=== PATIENT | female | born 1965 | race Caucasian/White ===

== ENCOUNTER 2016-10-09 06:38 | Emergency (ER) | payer OTHER ==
[~2016-10-09] VITALS: Ht 154.9 cm; Wt 72.6 kg
[~2016-10-09 06:38] MED LIST: HYDR-971 PO; OMEP40CA2 PO; PHEN37.5 PO; ZOLP5TAB PO
[2016-10-09 07:04] VITALS: BP 142/65
[2016-10-09] MEDS ORDERED: TRAM50TA PO (07:12)
--- NOTE | 2016-10-09 07:12 | PHYS DOC ---
Past Medical History Past Medical History: Diabetes-Type II, High Cholesterol, Hypertension, Kidney Stone Past Surgical History: Cholecystectomy, , Hysterectomy, Other Additional Past Surgical Histo: gastric sleeve, lap band Alcohol Use: None Drug Use: None Adult General Chief Complaint Chief Complaint: FACE PROBLEM HPI HPI Patient is a 51 year old female who presents with left sided jaw pain. patient reports 2-3 day history of jaw pain worse with opening her mouth, associated with clicking sound. She has pain with eating. Denies fevers or chills, dental pain, jaw or oral swelling, ear pain, radiating pain from the chest, upper extremity, or neck. Denies previous history of similar symptoms. Has had mild relief with application of a heating pad. Otherwise has tried no interventions at home. Has an appointment with her dentist this afternoon but is afraid she won't be able to go because she can barely open her mouth. Denies any other past medical history although chart indicates history of diabetes and hypertension. Review of Systems Review of Systems Constitutional: Denies fever or chills HENT: Denies nasal congestion or sore throat, reports dropping Respiratory: Denies cough or shortness of breath Cardiovascular: Denies chest pain GI: Denies abdominal pain, nausea, vomiting Musculoskeletal: Denies back pain or joint pain Integument: Denies rash s Neurologic: Denies headache, focal weakness or sensory changes Allergies Allergies Allergies Coded Allergies Type Severity Reaction Last Updated Verified ceftriaxone Allergy Intermediate Swelling 06/21/15 Yes codeine Adverse Reaction Intermediate nausea 06/21/15 Yes Physical Exam Physical Exam Constitutional: Well developed, well nourished, no acute distress, non-toxic appearance. HENT: Normocephalic, atraumatic, bilateral external ears normal, left TM no erythema or bulging, normal EAC, oropharynx moist, nose normal. tender with palpation over the left TMJ, limited mouth opening, no jaw swelling, scattered dental caries without abscess, airway patent. Eyes: PERRLA, EOMI Neck: supple, no stridor. Cardiovascular: RRR, no murmurs, no edema. Lungs & Thorax: LCTAB, no wheezing, no respiratory distress. Abdomen: nondistended. Skin: Warm, dry, no erythema, no rash. Extremities: No deformity Neurologic: Alert and oriented X 3 Current Patient Data Vital Signs Vital Signs Date Time Temp Pulse Resp B/P Pulse Ox O2 Delivery O2 Flow Rate FiO2 10/09/16 07:04 97.9 63 20 98 Room Air 97.9 EKG EKG [] Radiology/Procedures Radiology/Procedures [] Course & Med Decision Making Course & Med Decision Making Pertinent Labs and Imaging studies reviewed. (See chart for details) Patient presents with TMJ pain consistent with TMJ disorder. No symptoms or exam findings to suggest more serious pathology at this time; appears musculoskeletal in nature. Recommend soft diet, ice/heat, ibuprofen if able otherwise tylenol, gave prescription for tramadol. Recommend keeping appointment with dentist today. Come back for chest pain, fevers, difficulty breathing or swallowing, any otherwise worsening condition. Discharged home in stable condition. [] Dragon Disclaimer Dragon Disclaimer This electronic medical record was generated, in whole or in part, using a voice recognition dictation system. Departure Departure Impression: Primary Impression: TMJ (temporomandibular joint disorder) Disposition: 01 HOME, SELF-CARE Condition: STABLE Referrals: BON BLACKMON MD (PCP) Patient Instructions: Temporomandibular Joint Pain-Brief Additional Instructions: You were seen in the emergency department today for jaw pain. This appears to be dysfunction of temporomandibular joint. Please rest, apply ice or heat, take tylenol or ibuprofen as needed for pain, use tramadol for breakthrough pain. Follow up with your dentist today as scheduled. Come back for severe chest pain, high fever, difficulty breathing or swallowing, any otherwise worsening condition. Scripts Tramadol Hcl 50 Mg Tablet1 Tab PO PRN Q6HRS PRN PAIN #15 TAB Prov:LYNDSEY SPIVEY MD 10/09/16 LYNDSEY SPIVEY MD Oct 09, 2016 07:12
== END 2016-10-09 07:20 | disposition home or self-care (01) ==
LOC: ER 06:38
DX: M26.601 Right temporomandibular joint disorder, unspecified (principal); E78.00 Pure hypercholesterolemia, unspecified; E11.9 Type 2 diabetes mellitus without complications; I10 Essential (primary) hypertension; Z88.1 Allergy status to other antibiotic agents; Z88.5 Allergy status to narcotic agent
CPT/HCPCS: 99283

== ENCOUNTER → 2017-11-15 | Outpatient (CLI) | payer OTHER | END | disposition home or self-care (01) | LOC: MAMMO 07:56 | DX: Z12.31 Encounter for screening mammogram for malignant neoplasm of breast (principal); I10 Essential (primary) hypertension; E11.9 Type 2 diabetes mellitus without complications; E78.00 Pure hypercholesterolemia, unspecified | CPT/HCPCS: 77063; 77067 ==

== ENCOUNTER → 2018-03-07 | Day surgery (SDC) | payer OTHER ==
[~2018-03-07] MED LIST changes: +IV RINGERS,LACTATED 1000ML 1,000 ML IV SCH; +LIDOCAINE 1% PF 2 ML VIAL. ID PRN; +LIDOCAINE 2% PF Vial for OR 5 ML VIAL. ONE; +MIDAZOLAM HCL/PF 2 MG/2 ML VIAL. IV PRN; +ONDANSETRON PF 4 MG/2 ML VIAL. IV PRN; +PROCHLORPERAZINE 10 MG/2 ML VIAL. IV PRN; +PROPOFOL 20 ML IV ONE; +TRAM50TA PO; +fentaNYL PF VIAL 100 MCG/2 ML VIAL IV PRN
[2018-03-07 11:50] VITALS: BP 144/66
--- NOTE | 2018-03-07 23:57 | HP ---
ADMIT DATE: 03/07/2018 REFERRING PHYSICIAN: Hannah Roach. REASON: Dysphagia and epigastric pain. HISTORY OF PRESENT ILLNESS: A 53-year-old female with a past medical history significant for , cholecystectomy, hysterectomy, tonsillectomy and gastric bypass surgery was seen with persistent epigastric pain associated with difficulties with swallowing. She has a sensation of Globus in the upper pharynx. There has been no change in weight and no bleeding. Did have an episode of pain, which lasted for several hours, which did awaken her from her sleep similar to her previous gallbladder attack prior to cholecystectomy for symptomatic cholelithiasis. With continued symptoms, she is here today. PAST MEDICAL HISTORY: Status post , cholecystectomy, hysterectomy, tonsillectomy, weight reduction and gastroesophageal reflux disease. ALLERGIES: CEFTRIAXONE AND CODEINE. MEDICATIONS: Include [place], omeprazole, phentermine, tramadol and zolpidem. FAMILY AND SOCIAL HISTORY: Colon cancer in the father in 50s. She does not drink or smoke. Family history is otherwise noncontributory. REVIEW OF SYSTEMS: Per records. PHYSICAL EXAMINATION: GENERAL: Reveals a well-nourished, well-developed female. VITAL SIGNS: Temperature is 98.1, pulse 97 and respirations 20. HEENT: Reveals normocephalic and atraumatic head. Pupils and extraocular muscles are not tested. Sclerae anicteric. NECK: Supple. LUNGS: Clear. CARDIOVASCULAR: Reveals S1, S2 without S3, S4 or appreciable murmur. ABDOMEN: Reveals soft abdomen with epigastric tenderness to deep palpation. No appreciable hepatosplenomegaly with multiple surgical incisions. EXTREMITIES: Reveals no cyanosis, clubbing or edema. IMPRESSION: Epigastric pain, dysphagia, status post cholecystectomy, etiology is to be determined. Differential includes Schatzki's ring, achalasia, malignancy, Adams's, eosinophilic esophagitis, peptic ulcer disease, retained common duct stone. Therefore, recommend upper endoscopy with possible biopsy and dilatation. Risks and benefits have been discussed with the patient and is willing to proceed at this time. DALIA RUBIO MD DR: LUISANA/alessandro JOB#: [id number] / [id number]
== END | disposition home or self-care (01) ==
LOC: SURG 10:09
PROVIDERS: ATTEND Internal Medicine Gastroenterology
DX: K22.2 Esophageal obstruction (principal); I10 Essential (primary) hypertension; K21.9 Gastro-esophageal reflux disease without esophagitis; Z90.49 Acquired absence of other specified parts of digestive tract; Z98.890 Other specified postprocedural states; Z90.710 Acquired absence of both cervix and uterus; Z98.84 Bariatric surgery status; Z88.5 Allergy status to narcotic agent; Z88.8 Allergy status to other drugs, medicaments and biological substances; Z79.899 Other long term (current) drug therapy; Z80.0 Family history of malignant neoplasm of digestive organs
CPT/HCPCS: 43235; 43450; J2001; J2704

== ENCOUNTER → 2018-03-19 | Outpatient (CLI) | payer OTHER ==
[2018-03-07 11:50] VITALS: BP 144/66
[~2018-03-19] MED LIST changes: -IV RINGERS,LACTATED 1000ML 1,000 ML IV SCH; -LIDOCAINE 1% PF 2 ML VIAL. ID PRN; -LIDOCAINE 2% PF Vial for OR 5 ML VIAL. ONE; -MIDAZOLAM HCL/PF 2 MG/2 ML VIAL. IV PRN; -ONDANSETRON PF 4 MG/2 ML VIAL. IV PRN; -PROCHLORPERAZINE 10 MG/2 ML VIAL. IV PRN; -PROPOFOL 20 ML IV ONE; -fentaNYL PF VIAL 100 MCG/2 ML VIAL IV PRN
--- NOTE | 2018-03-19 16:37 | RAD ---
Right upper quadrant abdominal ultrasound, 03/19/2018: HISTORY: Abdominal pain after cholecystectomy The gallbladder is surgically absent. The common hepatic duct is of normal caliber measuring 4 mm. The liver demonstrates increased echogenicity in a diffuse pattern most commonly due to fatty change. No hepatic mass is evident. The visualized portions of the right kidney are unremarkable. The pancreas was obscured by overlying bowel. IMPRESSION: 1. Status post cholecystectomy. 2. Increased hepatic echogenicity suggesting fatty change Electronically signed by: Miki Patel MD (03/19/2018 4:34 PM) [facility]
== END | disposition home or self-care (01) ==
LOC: US 07:16
PROVIDERS: ATTEND Internal Medicine Gastroenterology
DX: R10.84 Generalized abdominal pain (principal); K21.9 Gastro-esophageal reflux disease without esophagitis; I10 Essential (primary) hypertension; E11.9 Type 2 diabetes mellitus without complications; E78.00 Pure hypercholesterolemia, unspecified; Z87.442 Personal history of urinary calculi; Z86.010 Personal history of colon polyps; Z90.710 Acquired absence of both cervix and uterus; Z90.49 Acquired absence of other specified parts of digestive tract; Z98.890 Other specified postprocedural states; Z88.1 Allergy status to other antibiotic agents; Z88.8 Allergy status to other drugs, medicaments and biological substances; Z88.5 Allergy status to narcotic agent; Z80.0 Family history of malignant neoplasm of digestive organs; Z82.49 Family history of ischemic heart disease and other diseases of the circulatory system
CPT/HCPCS: 76705

== ENCOUNTER → 2018-03-26 | Outpatient (CLI) | payer OTHER ==
[2018-03-07 11:50] VITALS: BP 144/66
[~2018-03-26] MED LIST changes: +CONTRAST GIVEN. MC PRN; +IOHEXOL 300 MG/ML 100ML VIAL. IV ONE
[2018-03-26 08:27] LABS: CREATININE 0.9 mg/dL (0.6-1.0); GFR 65.8
--- NOTE | 2018-03-26 09:46 | RAD ---
PQRS Compliance Statement: One or more of the following individualized dose reduction techniques were utilized for this examination: 1. Automated exposure control 2. Adjustment of the mA and/or kV according to patient size 3. Use of iterative reconstruction technique Neck CT with contrast: 03/26/2018 Indication: Dysphagia. Technique: Multiple axial images were obtained through the neck following intravenous injection of contrast material. Comparison: None. Findings: The visualized brain parenchyma appears intact. The skull base is normal. The visualized paranasal sinuses and orbital contents are normal. The sella turcica and cavernous sinus regions appear intact. The mastoid air cells are normal. The fossa of Rosenmuller is normal. The parotid space contents and medical office coordinator space contents appear intact. The parapharyngeal spaces are normal. The submandibular and sublingual space contents appear intact. The epiglottis, aryepiglottic folds, and piriform sinuses are normal. The vallecula appears normal. The larynx and trachea are normal. The thyroid lobes appear intact. The carotid space contents are normal, however there is retropharyngeal course of the right common carotid artery which exerts mild mass effect on the right puriform sinus. There is no deep cervical chain adenopathy observed. The jugulodigastric regions appear intact. The perivertebral space contents are normal. The supraclavicular regions appear intact. The visualized mediastinum is normal. The visualized lungs appear intact. The visualized osseous structures are normal. Impression: 1. No suspicious mass is identified within the neck. No pathologic cervical lymphadenopathy. 2. Retropharyngeal course of the right common carotid artery with the carotid bifurcation exerting mild mass effect on the right piriform sinus. Electronically signed by: Deanna Anne MD (03/26/2018 9:43 AM) [id number]
== END | disposition home or self-care (01) ==
LOC: CT 07:35
PROVIDERS: ATTEND Internal Medicine Gastroenterology
DX: E04.1 Nontoxic single thyroid nodule (principal); I10 Essential (primary) hypertension; E11.9 Type 2 diabetes mellitus without complications; E78.5 Hyperlipidemia, unspecified; E78.00 Pure hypercholesterolemia, unspecified; K21.0 Gastro-esophageal reflux disease with esophagitis; Z88.1 Allergy status to other antibiotic agents; Z88.5 Allergy status to narcotic agent; Z79.899 Other long term (current) drug therapy; Z88.8 Allergy status to other drugs, medicaments and biological substances; Z82.49 Family history of ischemic heart disease and other diseases of the circulatory system; Z80.0 Family history of malignant neoplasm of digestive organs; Z90.49 Acquired absence of other specified parts of digestive tract; Z90.710 Acquired absence of both cervix and uterus
CPT/HCPCS: 36415; 70491; 82565; 84520; Q9967

== ENCOUNTER 2018-11-08 12:45 | Emergency (ER) | payer OTHER ==
[~2018-11-08] VITALS: Ht 152.4 cm; Wt 68.9 kg
[~2018-11-08 12:45] MED LIST changes: -CONTRAST GIVEN. MC PRN; +HYDR-3164 PO; -HYDR-971 PO; -IOHEXOL 300 MG/ML 100ML VIAL. IV ONE
[2018-11-08 13:27] LABS: BASO # 0.1 x10^3/uL (0.0-0.2); BASO % 1 % (0-3); EOS # 0.1 x10^3/uL (0.0-0.7); EOS % 2 % (0-3); HEMATOCRIT 40.9 % (36.0-47.0); HEMOGLOBIN 13.8 g/dL (12.0-15.5); LYMPH # 1.7 x10^3/uL (1.0-4.8); LYMPH % 30 % (24-48); MEAN CORPUSCULAR HEMOGLOBIN 28 pg (25-35); MEAN CORPUSCULAR HGB CONC 34 g/dL (31-37); MEAN CORPUSCULAR VOLUME 83 fL (79-100); MONO # 0.4 x10^3/uL (0.0-1.1); MONO % 7 % (0-9); NEUT # 3.4 x10^3uL (1.8-7.7); NEUT % 59 % (31-73); PLATELET COUNT 215 x10^3/uL (140-400); RED BLOOD COUNT 4.91 x10^6/uL (3.50-5.40); RED CELL DISTRIBUTION WIDTH 14.1 % (11.5-14.5); WHITE BLOOD COUNT 5.8 x10^3/uL (4.0-11.0)
[2018-11-08 13:37] LABS: CALCIUM 8.9 mg/dL (8.5-10.1); CREATININE 0.9 mg/dL (0.6-1.0); GFR 65.8; POTASSIUM 3.5 mmol/L (3.5-5.1); PROTHROMBIN TIME PATIENT 13.1 SEC (11.7-14.0)
[2018-11-08 13:41] LABS: D-DIMER 0.28 ug/mlFEU (0.00-0.50)
[2018-11-08 13:43] LABS: ALBUMIN 3.8 g/dL (3.4-5.0); ALBUMIN/GLOBULIN RATIO 0.9 (1.0-1.7); MAGNESIUM 1.9 mg/dL (1.8-2.4); TOTAL BILIRUBIN 0.4 mg/dL (0.2-1.0)
[2018-11-08] MEDS ORDERED: NITROGLYCERIN SUBLINGUAL 0.4 MG BOTTLE OF 25. SL PRN (13:45)
[2018-11-08] MEDS ORDERED: ASPIRIN 325 MG TABLET PO ONE (13:45)
[2018-11-08 13:50] LABS: CREATINE KINASE 55 U/L (26-192)
--- NOTE | 2018-11-08 13:57 | RAD ---
PORTABLE CHEST 1V History: CHEST PAIN X1 DAY, NAUSEA Comparison: September 13, 2014 Findings: Single view of the chest is submitted. There is no infiltrate, pneumothorax, or effusion. The pericardial cardiac silhouette is within normal limits in size. Impression: 1. There is no evidence of acute cardiopulmonary disease. Electronically signed by: Sherwin Reese MD (11/08/2018 1:55 PM) [facility]
--- NOTE | 2018-11-08 14:40 | PHYS DOC ---
Past Medical History Past Medical History: Diabetes-Type II, GERD, High Cholesterol, Hypertension, Kidney Stone Past Surgical History: Cholecystectomy, , Hysterectomy, Other Additional Past Surgical Histo: gastric sleeve, lap band Alcohol Use: None Drug Use: None Adult General Chief Complaint Chief Complaint: CHEST PAIN HPI HPI Patient is a 53-year-old female who presented to ER today for evaluation of right-sided chest pain and right side epigastric pain that radiated to her right shoulder and right scapular area, her back since this morning. Patient said initially the pain lasts for a few seconds now become more persistent lasted for 5 minutes. She did not a smoker, denies any recent operation, however she flew to [place] 3 weeks ago. Patient denies any history of heart problem, no history of blood clot disorder. Patient denies any family history of heart disease. Patient said the pain associated with some nausea, and shortness of air. Review of Systems Review of Systems Constitutional: Denies fever or chills [] Eyes: Denies change in visual acuity, redness, or eye pain [] HENT: Denies nasal congestion or sore throat [] Respiratory: Denies cough , POSITIVE FOR shortness of breath [] Cardiovascular: No additional information not addressed in HPI [] GI: Denies abdominal pain, nausea, vomiting, bloody stools or diarrhea [] : Denies dysuria or hematuria [] Musculoskeletal: Denies back pain or joint pain [] Integument: Denies rash or skin lesions [] Neurologic: Denies headache, focal weakness or sensory changes [] Endocrine: Denies polyuria or polydipsia [] All other systems were reviewed and found to be within normal limits, except as documented in this note. Current Medications Current Medications Current Medications Medications (Trade) Dose Ordered Sig/[facility] Start Time Stop Time Status Last Admin Dose Admin Aspirin ([place]ierra Aspirin) 325 mg 1X ONCE 11/08/18 13:45 11/08/18 13:46 DC 11/08/18 13:37 325 MG Info (CONTRAST GIVEN -- Rx MONITORING) 1 each PRN DAILY PRN 11/08/18 15:00 11/10/18 14:59 Iohexol (Omnipaque 350 Mg/ml) 90 ml 1X ONCE 11/08/18 14:45 11/08/18 14:46 DC 11/08/18 15:15 90 ML Multi-Ingredient Mouthwash/Gargle (Gi Cocktail) 20 ml 1X ONCE 11/08/18 14:45 11/08/18 14:46 DC 11/08/18 14:53 20 ML Nitroglycerin (Nitrostat) 0.4 mg PRN Q5MIN PRN 11/08/18 13:45 11/08/18 13:38 0.4 MG Allergies Allergies Allergies Coded Allergies Type Severity Reaction Last Updated Verified ceftriaxone Allergy Intermediate Swelling 03/07/18 Yes codeine Adverse Reaction Intermediate nausea 03/07/18 Yes Physical Exam Physical Exam Constitutional: Well developed, well nourished, no acute distress, non-toxic appearance. [] HENT: Normocephalic, atraumatic, bilateral external ears normal, oropharynx moist, no oral exudates, nose normal. [] Eyes: PERRLA, EOMI, conjunctiva normal, no discharge. [] Neck: Normal range of motion, no tenderness, supple, no stridor. [] Cardiovascular:Heart rate regular rhythm, no murmur [] Lungs & Thorax: Bilateral breath sounds clear to auscultation [] Abdomen: Bowel sounds normal, soft, no tenderness, no masses, no pulsatile masses. [] Skin: Warm, dry, no erythema, no rash. [] Back: No tenderness, no CVA tenderness. [] Extremities: No tenderness, no cyanosis, no clubbing, ROM intact, no edema. [] Neurologic: Alert and oriented X 3, normal motor function, normal sensory function, no focal deficits noted. [] Psychologic: Affect normal, judgement normal, mood normal. [] Current Patient Data Vital Signs Vital Signs Date Time Temp Pulse Resp B/P (MAP) Pulse Ox O2 Delivery O2 Flow Rate FiO2 11/08/18 15:19 63 22 154/69 (97) 96 Room Air 11/08/18 12:52 98.2 98.2 Lab Values Laboratory Tests Test 11/08/18 13:15 11/08/18 14:25 White Blood Count 5.8 x10^3/uL (4.0-11.0) Red Blood Count 4.91 x10^6/uL (3.50-5.40) Hemoglobin 13.8 g/dL (12.0-15.5) Hematocrit 40.9 % (36.0-47.0) Mean Corpuscular Volume 83 fL (79-100) Mean Corpuscular Hemoglobin 28 pg (25-35) Mean Corpuscular Hemoglobin Concent 34 g/dL (31-37) Red Cell Distribution Width 14.1 % (11.5-14.5) Platelet Count 215 x10^3/uL (140-400) Neutrophils (%) (Auto) 59 % (31-73) Lymphocytes (%) (Auto) 30 % (24-48) Monocytes (%) (Auto) 7 % (0-9) Eosinophils (%) (Auto) 2 % (0-3) Basophils (%) (Auto) 1 % (0-3) Neutrophils # (Auto) 3.4 x10^3uL (1.8-7.7) Lymphocytes # (Auto) 1.7 x10^3/uL (1.0-4.8) Monocytes # (Auto) 0.4 x10^3/uL (0.0-1.1) Eosinophils # (Auto) 0.1 x10^3/uL (0.0-0.7) Basophils # (Auto) 0.1 x10^3/uL (0.0-0.2) Prothrombin Time 13.1 SEC (11.7-14.0) Prothrombin Time INR 1.0 (0.8-1.1) D-Dimer (Kareen) 0.28 ug/mlFEU (0.00-0.50) Sodium Level 139 mmol/L (136-145) Potassium Level 3.5 mmol/L (3.5-5.1) Chloride Level 102 mmol/L (98-107) Carbon Dioxide Level 27 mmol/L (21-32) Anion Gap 10 (6-14) Blood Urea Nitrogen 13 mg/dL (7-20) Creatinine 0.9 mg/dL (0.6-1.0) Estimated GFR (Cockcroft-Gault) 65.8 BUN/Creatinine Ratio 14 (6-20) Glucose Level 172 mg/dL (70-99) H Calcium Level 8.9 mg/dL (8.5-10.1) Magnesium Level 1.9 mg/dL (1.8-2.4) Total Bilirubin 0.4 mg/dL (0.2-1.0) Aspartate Amino Transferase (AST) 16 U/L (15-37) Alanine Aminotransferase (ALT) 20 U/L (14-59) Alkaline Phosphatase 80 U/L (46-116) Creatine Kinase 55 U/L (26-192) Creatine Kinase MB (Mass) 0.6 ng/mL (0.0-3.6) Creatine Kinase MB Relative Index % (0-4) Troponin I Quantitative < 0.017 ng/mL (0.000-0.055) BV-Axs-P-Type Natriuretic Peptide 48 pg/mL (0-124) Total Protein 8.0 g/dL (6.4-8.2) Albumin 3.8 g/dL (3.4-5.0) Albumin/Globulin Ratio 0.9 (1.0-1.7) L Lipase 228 U/L (73-393) Urine Collection Type Unknown Urine Color Yellow Urine Clarity Clear Urine pH 5.5 Urine Specific [place] 1.010 Urine Protein Negative mg/dL (NEG-TRACE) Urine Glucose (UA) Negative mg/dL (NEG) Urine Ketones (Stick) Negative mg/dL (NEG) Urine Blood Negative (NEG) Urine Nitrite Negative (NEG) Urine Bilirubin Negative (NEG) Urine Urobilinogen Dipstick 0.2 mg/dL (0.2 mg/dL) Urine Leukocyte Esterase Negative (NEG) Urine RBC 1-2 /HPF (0-2) Urine WBC Occ /HPF (0-4) Urine Squamous Epithelial Cells Mod /LPF Urine Bacteria 0 /HPF (0-FEW) Urine Mucus Mod /LPF Laboratory Tests 11/08/18 13:15 Laboratory Tests 11/08/18 13:15 EKG EKG EKG was read by this physician: rate of 84 bpm, sinus rhythm, NO STEMI. Radiology/Procedures Radiology/Procedures [][facility] [address] [place] [address] IMAGING REPORT Signed PATIENT: OPAL VAIL ACCOUNT: [id number] : 1965 LOCATION: ER AGE: 53 SEX: F EXAM STATUS: REG ER ORD. PHYSICIAN: ANTOINETTE FOLEY DO REASON: CHEST PAIN, SOA PROCEDURE: CT ANGIOGRAPHY CHEST CT arteriogram of the chest. HISTORY: Chest pain, short of air CT arteriogram of the chest was done using 90 mL Omnipaque 350 contrast. Sagittal and coronal MIP images were reconstructed. Thyroid is homogeneous. There is no mediastinal adenopathy or pleural effusion. Patient's had a cholecystectomy. Visualized portions of liver and spleen are unremarkable. Adrenal glands are normal. Poles the kidneys are unremarkable. Patient's had a sleeve gastrectomy. Lungs are free of infiltrates. There is a 2 mm nodule in the right middle lobe unchanged from an old study. There is a benign density along the left major fissure. This study is negative for evidence of a pulmonary embolus. IMPRESSION: 1. No acute infiltrates. 2. Negative for a pulmonary embolus. Electronically signed by: Ric Villarreal MD (11/08/2018 4:10 PM) [id number] DICTATED and SIGNED BY: RIC VILLARREAL MD DATE: 11/08/18 1610 Course & Med Decision Making Course & Med Decision Making Pertinent Labs and Imaging studies reviewed. (See chart for details) She was given nitroglycerin but did not relieve any pain. Patient was then given GI cocktail, the pain completely went away. Patient felt much better now, would like to go home and follow-up with her family doctor. Dragon Disclaimer Dragon Disclaimer This electronic medical record was generated, in whole or in part, using a voice recognition dictation system. Departure Departure Impression: Primary Impression: Chest pain Additional Impression: Gastritis Disposition: HOME, SELF-CARE Condition: IMPROVED Referrals: KELLIE SCOTT MD (PCP) follow up with your doctor on Saturday for reevaluation Patient Instructions: Chest Pain (Nonspecific), Gastritis, Adult Scripts Sucralfate (CARAFATE) 1 Gm Tablet 1 TAB PO QID for 14 Days, #56 TAB 1 Refill Prov: ANTOINETTE FOLEY DO 11/08/18 Problem Qualifiers ANTOINETTE FOLEY DO Nov 08, 2018 14:40
[2018-11-08 14:43] LABS: BILIRUBIN,URINE NEGATIVE (NEG); CLARITY,URINE CLEAR; COLOR,URINE YELLOW; NITRITE,URINE NEGATIVE (NEG); PH,URINE 5.5; PROTEIN,URINE NEGATIVE (NEG-TRACE); UROBILINOGEN,URINE 0.2 mg/dL (0.2 mg/dL)
[2018-11-08] MEDS ORDERED: IOHEXOL 350 MG/ML 100 ML VIAL. IV ONE (14:45)
[2018-11-08] MEDS ORDERED: LIDO:MAALOX 1:1 20 ML SINGLE DOSE. SWSW ONE (14:45)
[2018-11-08 14:58] LABS: BACTERIA,URINE 0 /HPF (0-FEW); SQUAMOUS EPITHELIAL CELL,UR MOD /LPF; WBC,URINE OCC /HPF (0-4)
[2018-11-08] MEDS ORDERED: CONTRAST GIVEN. MC PRN (15:00)
--- NOTE | 2018-11-08 16:12 | RAD ---
CT arteriogram of the chest. HISTORY: Chest pain, short of air CT arteriogram of the chest was done using 90 mL Omnipaque 350 contrast. Sagittal and coronal MIP images were reconstructed. Thyroid is homogeneous. There is no mediastinal adenopathy or pleural effusion. Patient's had a cholecystectomy. Visualized portions of liver and spleen are unremarkable. Adrenal glands are normal. Poles the kidneys are unremarkable. Patient's had a sleeve gastrectomy. Lungs are free of infiltrates. There is a 2 mm nodule in the right middle lobe unchanged from an old study. There is a benign density along the left major fissure. This study is negative for evidence of a pulmonary embolus. IMPRESSION: 1. No acute infiltrates. 2. Negative for a pulmonary embolus. Electronically signed by: Ric Villarreal MD (11/08/2018 4:10 PM) [id number]
[2018-11-08 16:19] VITALS: BP 136/63
[2018-11-08] MEDS ORDERED: SUCR1TAB35 PO (16:31)
--- NOTE | 2018-11-09 08:40 | EKG ---
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 Electronically Signed On 11-12-2018 13:09:48 CDT by Nain Ge
== END 2018-11-08 16:40 | disposition home or self-care (01) ==
LOC: ER 12:45
DX: K29.70 Gastritis, unspecified, without bleeding (principal); R07.89 Other chest pain; M25.511 Pain in right shoulder; K21.9 Gastro-esophageal reflux disease without esophagitis; E78.00 Pure hypercholesterolemia, unspecified; E11.9 Type 2 diabetes mellitus without complications; I10 Essential (primary) hypertension; Z90.49 Acquired absence of other specified parts of digestive tract; Z90.710 Acquired absence of both cervix and uterus; Z87.442 Personal history of urinary calculi; Z88.1 Allergy status to other antibiotic agents; Z88.5 Allergy status to narcotic agent
CPT/HCPCS: 36415; 71045; 71275; 80053; 81001; 82553; 83690; 83735; 83880; 84484; 85025; 85379; 85610; 93005; 99285; Q9967

== ENCOUNTER → 2019-01-08 | Outpatient (CLI) | payer OTHER ==
[~2019-01-08] MED LIST changes: +SUCR1TAB35 PO
--- NOTE | 2019-01-08 10:29 | RAD ---
DATE: 01/08/2019 EXAM: MAMMO JOSHUA SCREENING BILATERAL HISTORY: Routine screening COMPARISON: 11/15/2017 This study was interpreted with the benefit of Computerized Aided Detection (CAD). Breast Density: HETERO The breast parenchyma is heterogenously dense, which could reduce sensitivity of mammography. Breast parenchyma level C. FINDINGS: 2-D and 3-D tomosynthesis imaging was performed in CC and MLO projections. No new or enlarging breast densities are seen. Benign type calcification is present. No suspicious microcalcifications have developed. IMPRESSION: There is no mammographic evidence of malignancy in either breast. BI-RADS CATEGORY: 2 BENIGN FINDING(S) RECOMMENDED FOLLOW-UP: 12M 12 MONTH FOLLOW-UP PQRS compliance statement: Patient information was entered into a reminder system with a target due date for the next mammogram. Mammography is a sensitive method for finding small breast cancers, but it does not detect them all and is not a substitute for careful clinical examination. A negative mammogram does not negate a clinically suspicious finding and should not result in delay in biopsying a clinically suspicious abnormality. "Our facility is accredited by the [employer] Mammography Program."
== END | disposition home or self-care (01) ==
LOC: MAMMO 07:58
PROVIDERS: ATTEND Family Medicine
DX: Z12.31 Encounter for screening mammogram for malignant neoplasm of breast (principal); R92.1 Mammographic calcification found on diagnostic imaging of breast
CPT/HCPCS: 77063; 77067

== ENCOUNTER → 2019-02-04 | Outpatient (CLI) | payer OTHER ==
--- NOTE | 2019-02-04 09:20 | RAD ---
Examination: SHOULDER 2+V RIGHT History: Pain Comparison/Correlation: None Findings: Total 3 images of the right shoulder were obtained. Joint spaces are adequate. No acute fracture or bony destruction. Soft tissues are unremarkable. Right upper ribs are unremarkable. No significant degenerative change for the patient's age. Impression: No acute process. Electronically signed by: Romeo Little MD (02/04/2019 9:17 AM) [id number]
== END | disposition home or self-care (01) ==
LOC: RAD 06:17
PROVIDERS: ATTEND Orthopaedic Surgery Sports Medicine
DX: M25.511 Pain in right shoulder (principal)
CPT/HCPCS: 73030

== ENCOUNTER → 2019-03-27 | Outpatient (CLI) | payer OTHER ==
[~2019-03-27] MED LIST changes: +IOHEXOL 240 MG/ML 50ML VIAL. PO ONE; +IOHEXOL 300 MG/ML 100ML VIAL. IV ONE
--- NOTE | 2019-03-27 09:19 | RAD ---
PQRS Compliance statement: One or more of the following individualized dose reduction techniques were utilized for this examination: 1. Automated exposure control. 2. Adjustment of the mA and/or kV according to patient size. 3. Use of iterative reconstruction technique. Indication:Lower abdominal pain. TECHNIQUE: CT abdomen and pelvis with IV contrast with multiplanar reformats. COMPARISON: 01/12/2016 FINDINGS: Heart is normal in size. No pericardial or pleural effusion. Clear lung bases. Liver, spleen, pancreas, adrenals and kidneys within normal limits. Status post cholecystectomy. No enlarged retroperitoneal or pelvic adenopathy. No free pelvic fluid or ascites. No bowel obstruction. Normal appendix. Status post partial gastrectomy. No pneumoperitoneum. Status post hysterectomy. Urinary bladder demonstrates no radiopaque stone. No suspicious bony lesion. IMPRESSION: No acute findings. Electronically signed by: Jean Paul Ellis DO (03/27/2019 9:16 AM) [id number]
== END | disposition home or self-care (01) ==
LOC: CT 07:25
PROVIDERS: ATTEND Family Medicine
DX: R10.30 Lower abdominal pain, unspecified (principal); Z90.49 Acquired absence of other specified parts of digestive tract; Z90.710 Acquired absence of both cervix and uterus
CPT/HCPCS: 74177; Q9966; Q9967

== ENCOUNTER → 2019-03-27 | Outpatient (CLI) | payer OTHER ==
[~2019-03-27] MED LIST changes: -IOHEXOL 240 MG/ML 50ML VIAL. PO ONE; -IOHEXOL 300 MG/ML 100ML VIAL. IV ONE
[2019-03-27 01:35] LABS: BASO # 0.1 x10^3/uL (0.0-0.2); BASO % 1 % (0-3); EOS # 0.2 x10^3/uL (0.0-0.7); EOS % 2 % (0-3); HEMATOCRIT 39.2 % (36.0-47.0); HEMOGLOBIN 13.3 g/dL (12.0-15.5); LYMPH # 2.9 x10^3/uL (1.0-4.8); LYMPH % 30 % (24-48); MEAN CORPUSCULAR HEMOGLOBIN 29 pg (25-35); MEAN CORPUSCULAR HGB CONC 34 g/dL (31-37); MEAN CORPUSCULAR VOLUME 84 fL (79-100); MONO # 0.8 x10^3/uL (0.0-1.1); MONO % 8 % (0-9); NEUT # 5.9 x10^3/uL (1.8-7.7); NEUT % 60 % (31-73); PLATELET COUNT 217 x10^3/uL (140-400); RED BLOOD COUNT 4.65 x10^6/uL (3.50-5.40); RED CELL DISTRIBUTION WIDTH 13.6 % (11.5-14.5); WHITE BLOOD COUNT 9.8 x10^3/uL (4.0-11.0)
[2019-03-27 01:58] LABS: ALBUMIN 3.7 g/dL (3.4-5.0); ALBUMIN/GLOBULIN RATIO 0.8 (1.0-1.7); CALCIUM 8.8 mg/dL (8.5-10.1); CREATININE 0.8 mg/dL (0.6-1.0); POTASSIUM 3.9 mmol/L (3.5-5.1); TOTAL BILIRUBIN 0.3 mg/dL (0.2-1.0); TOTAL PROTEIN 8.1 g/dL (6.4-8.2)
[2019-03-27 02:15] LABS: CHOLESTEROL/HDL RATIO 5.1
[2019-03-27 19:11] LABS: CREAT RD UR 127.9 mg/dL (Not Estab.); MICRO CREAT RATIO 2.7 mg/g creat (0.0-30.0); MICROALB RD UR 3.4 ug/mL (Not Estab.)
[2019-03-28 06:10] LABS: HEMOGLOBIN A1C 7.7 % (4.8-5.6)
== END | disposition home or self-care (01) ==
LOC: LAB 00:06
PROVIDERS: ATTEND Family Medicine
DX: E11.9 Type 2 diabetes mellitus without complications (principal); E78.2 Mixed hyperlipidemia
CPT/HCPCS: 36415; 80053; 80061; 82043; 82570; 83036; 85025

== ENCOUNTER 2019-03-31 17:34 | Emergency (ER) | payer OTHER ==
[~2019-03-31] VITALS: Ht 154.9 cm; Wt 77.1 kg
[2019-03-31 17:41] VITALS: BP 132/67
--- NOTE | 2019-03-31 18:17 | PHYS DOC ---
Past Medical History Past Medical History: Diabetes-Type II, GERD, High Cholesterol, Hypertension, Kidney Stone (BRITTON BRUSH APRN) Past Surgical History: Cholecystectomy, , Hysterectomy, Other Additional Past Surgical Histo: gastric sleeve, lap band (BRITTON BRUSH APRN) Alcohol Use: None Drug Use: None (BRITTON BRUSH APRN) Adult General Chief Complaint Chief Complaint: KNEE INJURY HPI HPI Patient is a 54 year old female who presents with states she slipped on some water and landed on her right knee. Patient states she can walk on the knee. Patient states the pain is sharp and shooting when she is up walking on it. Denies any numbness or tingling. Patient rates her pain 8 out of 10. Patient is offered pain medication but refuses at this time. (BRITTON BRUSH APRN) Review of Systems Review of Systems Musculoskeletal: Denies back pain. Right knee joint pain [] All other systems were reviewed and found to be within normal limits, except as documented in this note. (BRITTON BRUSH APRN) Allergies Allergies Allergies Coded Allergies Type Severity Reaction Last Updated Verified ceftriaxone Allergy Intermediate Swelling 03/07/18 Yes codeine Adverse Reaction Intermediate nausea 03/07/18 Yes (DEANDRA RUBIN MD) Physical Exam Physical Exam Constitutional: Well developed, well nourished, no acute distress, non-toxic appearance. [] Skin: Warm, dry, no erythema, no rash. [] Extremities: Right knee cap tenderness, no cyanosis, no clubbing, ROM intact, no edema. [] Neurologic: Alert and oriented X 3, normal motor function, normal sensory function, no focal deficits noted. [] Psychologic: Affect normal, judgement normal, mood normal. [] (BRITTON BRUSH APRN) Current Patient Data Vital Signs Vital Signs Date Time Temp Pulse Resp B/P (MAP) Pulse Ox O2 Delivery O2 Flow Rate FiO2 03/31/19 17:41 98.4 101 16 132/67 (88) 97 Room Air 98.4 (DEANDRA RUBIN MD) EKG EKG [] (BRITTON BRUSH APRN) Radiology/Procedures Radiology/Procedures [] (BRITTON BRUSH APRN) Course & Med Decision Making Course & Med Decision Making Patient is a 54 year old female who presents with states she slipped on some water and landed on her right knee. Patient states she can walk and bare weight on the knee. Patient states the pain is sharp and shooting when she is up walking on it. Denies any numbness or tingling. Patient rates her pain 8 out of 10. Patient is offered pain medication but refuses at this time. Alert and oriented. Skin pink warm and dry. There is no swelling, bruising, deformity, abrasion to the right patella. ROM intact in right knee joint. There is no laxity in the joint. Popliteal pulse present. Tenderness to palpation to the anterior knee and or knee cap only. Dr Rubin read Knee xray and there are no obvious acute findings. Patient to follow up with primary care provider. (BRITTON BRUSH APRN) Dragon Disclaimer Dragon Disclaimer This electronic medical record was generated, in whole or in part, using a voice recognition dictation system. (BRITTON BRUSH APRN) Attending Signature I have participated in the care of this patient and I have reviewed and agree with all pertinent clinical information above including history, exam, and recommendations. (DEANDRA RUBIN MD) Departure Departure Impression: Primary Impression: Right knee pain Disposition: HOME, SELF-CARE Condition: STABLE Referrals: NABILA QUINTANILLA MD (PCP) Patient Instructions: Contusion Additional Instructions: Follow up with primary care provider. Use ice, Tylenol or Ibuprofen to help with pain. Problem Qualifiers Primary Impression: Right knee pain Chronicity: acute Qualified Codes: M25.561 - Pain in right knee BRITTON BRUSH APRN Mar 31, 2019 18:17 DEANDRA RUBIN MD Apr 01, 2019 04:46
--- NOTE | 2019-04-01 07:29 | RAD ---
KNEE RIGHT 4V History: Fall, pain Comparison: July 23, 2017 Findings: 4 views of the right knee are submitted. No acute fracture or dislocation is identified. Impression: 1. No acute osseous abnormality is identified by radiographs. Electronically signed by: Sherwin Reese MD (04/01/2019 7:26 AM) [facility]
== END 2019-03-31 18:53 | disposition home or self-care (01) ==
LOC: ER 17:34
DX: M25.561 Pain in right knee (principal); E11.9 Type 2 diabetes mellitus without complications; K21.9 Gastro-esophageal reflux disease without esophagitis; E78.00 Pure hypercholesterolemia, unspecified; I10 Essential (primary) hypertension; Z87.442 Personal history of urinary calculi; Z90.49 Acquired absence of other specified parts of digestive tract; Z98.890 Other specified postprocedural states; Z90.710 Acquired absence of both cervix and uterus; Z88.1 Allergy status to other antibiotic agents; Z88.5 Allergy status to narcotic agent
CPT/HCPCS: 73564; 99284

== ENCOUNTER 2019-06-19 23:19 | Emergency (ER) | payer OTHER ==
[~2019-06-19] VITALS: Ht 154.9 cm; Wt 74.8 kg
[2019-06-19 23:26] VITALS: BP 151/65
--- NOTE | 2019-06-19 23:38 | PHYS DOC ---
Past Medical History Past Medical History: Diabetes-Type II, GERD, High Cholesterol, Hypertension, Kidney Stone Past Surgical History: Cholecystectomy, , Hysterectomy, Other Additional Past Surgical Histo: gastric sleeve, lap band Alcohol Use: None Drug Use: None Adult General Chief Complaint Chief Complaint: SKIN RASH/ABSCESS HPI HPI Patient is a 54 year old female with history of GERD, hypertension type 2 diabetes who presents with diffuse urticaria starting several hours prior to ED arrival. Urticaria is concentrated over torso. Patient denies known allergen exposure or previous medication, food or household products allergies. Denies oral pharyngeal swelling, chest tightness, shortness breath and wheezing. No abdominal pain nausea vomiting. Patient states she is intolerant to jaw and is not taking any medications for treatment of hives. Patient recently started injected will diabetic medication one month ago. She denies previous reactions to injected medication.[] Review of Systems Review of Systems Review symptoms as per history of present illness. All other review symptoms are negative. All other systems were reviewed and found to be within normal limits, except as documented in this note. Current Medications Current Medications Current Medications Medications (Trade) Dose Ordered Sig/[place] Start Time Stop Time Status Last Admin Dose Admin Famotidine (Pepcid) 40 mg 1X ONCE 06/19/19 23:45 06/19/19 23:46 DC 06/19/19 23:46 40 MG Prednisone (Prednisone) 50 mg 1X ONCE 06/19/19 23:45 06/19/19 23:46 DC 06/19/19 23:47 50 MG Allergies Allergies Allergies Coded Allergies Type Severity Reaction Last Updated Verified ceftriaxone Allergy Intermediate Swelling 03/07/18 Yes codeine Adverse Reaction Intermediate nausea 03/07/18 Yes Physical Exam Physical Exam Constitutional: Well developed, well nourished, no acute distress, non-toxic a ppearance. [] HENT: Normocephalic, atraumatic, bilateral external ears normal, oropharynx moist, no o posterior oropharyngeal swelling, nose normal. [] Eyes: PERRLA, EOMI, conjunctiva normal, no discharge. [] Neck: Normal range of motion, no tenderness, supple, no stridor. [] Cardiovascular:Heart rate regular rhythm, no murmur [] Lungs & Thorax: Bilateral breath sounds clear to auscultation [] Abdomen: Bowel sounds normal, soft, no tenderness. [] Skin: Diffuse urticaria over torso. [] Back: No tenderness [] Extremities: No tenderness, ROM intact, no edema. [] Neurologic: Alert and oriented X 3, normal motor function, normal sensory function, no focal deficits noted. [] Psychologic: Affect normal, judgement normal, mood normal. [] Current Patient Data Vital Signs Vital Signs Date Time Temp Pulse Resp B/P (MAP) Pulse Ox O2 Delivery O2 Flow Rate FiO2 06/19/19 23:26 97.8 67 16 151/65 (93) 98 Room Air 97.8 EKG EKG [] Radiology/Procedures Radiology/Procedures [] Course & Med Decision Making Course & Med Decision Making Pertinent Labs and Imaging studies reviewed. (See chart for details) [Pepcid and prednisone given. Patient be monitored in the emergency department closely for resolution of symptoms. Anticipate discharge home with continued supportive care. Typical allergy instructions will be reviewed at time of discharge.] Dragon Disclaimer Dragon Disclaimer This electronic medical record was generated, in whole or in part, using a voice recognition dictation system. Departure Departure Referrals: NABILA QUINTANILLA MD (PCP) PANCHO ESTES DO Jun 19, 2019 23:38
[2019-06-19] MEDS ORDERED: predniSONE 10 MG TABLET PO ONE (23:45)
[2019-06-19] MEDS ORDERED: FAMOTIDINE 20 MG TABLET. PO ONE (23:45)
[2019-06-20] MEDS ORDERED: CETI10TA22 PO (00:24)
[2019-06-20] MEDS ORDERED: FAMO-63 PO (00:24)
[2019-06-20] MEDS ORDERED: PRED50TA PO (00:24)
== END 2019-06-20 00:34 | disposition home or self-care (01) ==
LOC: ER 23:19
DX: L50.9 Urticaria, unspecified (principal); E11.9 Type 2 diabetes mellitus without complications; K21.9 Gastro-esophageal reflux disease without esophagitis; E78.00 Pure hypercholesterolemia, unspecified; I10 Essential (primary) hypertension; Z87.442 Personal history of urinary calculi; Z90.49 Acquired absence of other specified parts of digestive tract; Z90.710 Acquired absence of both cervix and uterus; Z98.890 Other specified postprocedural states; Z88.1 Allergy status to other antibiotic agents; Z88.5 Allergy status to narcotic agent; Z98.84 Bariatric surgery status
CPT/HCPCS: 99283; J7512

== ENCOUNTER 2019-06-30 14:54 | Emergency (ER) | payer OTHER ==
[~2019-06-30] VITALS: Ht 154.9 cm; Wt 74.8 kg
[~2019-06-30 14:54] MED LIST changes: +CETI10TA22 PO; +FAMO-63 PO; +PRED50TA PO
[2019-06-30] MEDS ORDERED: DICYCLOMINE HCL 10 MG CAPSULE PO STA (15:35)
[2019-06-30] MEDS ORDERED: IV NORMAL SALINE 1000ML BAG 1,000 ML IV ONE (15:45)
[2019-06-30] MEDS ORDERED: ONDANSETRON PF 4 MG/2 ML VIAL. IV ONE (15:45)
--- NOTE | 2019-06-30 15:47 | PHYS DOC ---
Past Medical History Past Medical History: Diabetes-Type II, GERD Past Surgical History: Cholecystectomy, Hysterectomy, Tonsillectomy Additional Past Surgical Histo: LAP BAND, GASTRIC SLEEVE, C SECTION Alcohol Use: None Drug Use: None Adult General Chief Complaint Chief Complaint: NAUSEA/VOMITING/DIARRHA HPI HPI Patient is a 54 year old female who presents with nausea, diarrhea, cough, runny nose, congestion, headache this been ongoing since Saturday night. The patient also states she's been having abdominal cramping. She states that she leaves on a cruise tomorrow and was hoping to get tuned up. Denies any pain currently. Has been able to keep fluids down at home. Review of Systems Review of Systems Constitutional: Denies fever or chills [] Eyes: Denies change in visual acuity, redness, or eye pain [] HENT: Reports nasal congestion and sore throat. Respiratory: Reports cough denies shortness of breath [] Cardiovascular: No additional information not addressed in HPI [] GI: Reports nausea, diarrhea, and abdominal cramping, Denies vomiting, bloody stool. : Denies dysuria or hematuria [] Musculoskeletal: Denies back pain or joint pain [] Integument: Denies rash or skin lesions [] Neurologic: Reports headache, denies focal weakness or sensory changes [] Endocrine: Denies polyuria or polydipsia [] Complete systems were reviewed and found to be within normal limits, except as documented in this note. Current Medications Current Medications Current Medications Medications (Trade) Dose Ordered Sig/[place] Start Time Stop Time Status Last Admin Dose Admin Dicyclomine HCl (Bentyl) 10 mg 1X STAT 06/30/19 15:35 06/30/19 15:39 DC 06/30/19 15:53 10 MG Ondansetron HCl (Zofran) 4 mg 1X ONCE 06/30/19 15:45 06/30/19 15:46 DC 06/30/19 15:52 4 MG Sodium Chloride 1,000 ml @ 1,000 mls/hr 1X ONCE 06/30/19 15:45 06/30/19 16:44 DC 06/30/19 15:47 1,000 MLS/HR Allergies Allergies Allergies Coded Allergies Type Severity Reaction Last Updated Verified ceftriaxone Allergy Intermediate Swelling 03/07/18 Yes codeine Adverse Reaction Intermediate nausea 03/07/18 Yes Physical Exam Physical Exam Constitutional: Well developed, well nourished, no acute distress, non-toxic appearance. [] HENT: Normocephalic, atraumatic, bilateral external ears normal, bilateral tympanic membranes are pearly hewitt, oropharynx moist, no oral exudates, nose normal. [] Eyes: PERRLA, EOMI, conjunctiva normal, no discharge. [] Neck: Normal range of motion, no tenderness, supple, no stridor. [] Cardiovascular:Heart rate regular rhythm, no murmur [] Lungs & Thorax: Bilateral breath sounds clear to auscultation [] Abdomen: Bowel sounds normal, soft, no tenderness, no masses, no pulsatile masses. [] Skin: Warm, dry, no erythema, no rash. [] Back: No tenderness, no CVA tenderness. [] Extremities: No tenderness, no cyanosis, no clubbing, ROM intact, no edema. [] Neurologic: Alert and oriented X 3, normal motor function, normal sensory function, no focal deficits noted. [] Psychologic: Affect normal, judgement normal, mood normal. [] Current Patient Data Vital Signs Vital Signs Date Time Temp Pulse Resp B/P (MAP) Pulse Ox O2 Delivery O2 Flow Rate FiO2 06/30/19 15:15 97.7 83 16 141/65 (90) 97 Room Air 97.7 Lab Values Laboratory Tests Test 06/30/19 16:00 06/30/19 16:52 White Blood Count 6.1 x10^3/uL (4.0-11.0) Red Blood Count 4.40 x10^6/uL (3.50-5.40) Hemoglobin 12.3 g/dL (12.0-15.5) Hematocrit 37.0 % (36.0-47.0) Mean Corpuscular Volume 84 fL (79-100) Mean Corpuscular Hemoglobin 28 pg (25-35) Mean Corpuscular Hemoglobin Concent 33 g/dL (31-37) Red Cell Distribution Width 13.5 % (11.5-14.5) Platelet Count 205 x10^3/uL (140-400) Neutrophils (%) (Auto) 68 % (31-73) Lymphocytes (%) (Auto) 21 % (24-48) L Monocytes (%) (Auto) 7 % (0-9) Eosinophils (%) (Auto) 3 % (0-3) Basophils (%) (Auto) 1 % (0-3) Neutrophils # (Auto) 4.1 x10^3/uL (1.8-7.7) Lymphocytes # (Auto) 1.3 x10^3/uL (1.0-4.8) Monocytes # (Auto) 0.5 x10^3/uL (0.0-1.1) Eosinophils # (Auto) 0.2 x10^3/uL (0.0-0.7) Basophils # (Auto) 0.1 x10^3/uL (0.0-0.2) Sodium Level 142 mmol/L (136-145) Potassium Level 3.7 mmol/L (3.5-5.1) Chloride Level 106 mmol/L (98-107) Carbon Dioxide Level 27 mmol/L (21-32) Anion Gap 9 (6-14) Blood Urea Nitrogen 9 mg/dL (7-20) Creatinine 0.7 mg/dL (0.6-1.0) Estimated GFR (Cockcroft-Gault) 87.5 BUN/Creatinine Ratio 13 (6-20) Glucose Level 197 mg/dL (70-99) H Calcium Level 8.2 mg/dL (8.5-10.1) L Magnesium Level 2.0 mg/dL (1.8-2.4) Total Bilirubin 0.3 mg/dL (0.2-1.0) Aspartate Amino Transferase (AST) 16 U/L (15-37) Alanine Aminotransferase (ALT) 22 U/L (14-59) Alkaline Phosphatase 70 U/L (46-116) Total Protein 7.3 g/dL (6.4-8.2) Albumin 3.4 g/dL (3.4-5.0) Albumin/Globulin Ratio 0.9 (1.0-1.7) L Influenza Type A Antigen Negative (NEGATIVE) Influenza Type B Antigen Negative (NEGATIVE) Laboratory Tests 06/30/19 16:00 Laboratory Tests 06/30/19 16:00 EKG EKG [] Radiology/Procedures Radiology/Procedures [] Course & Med Decision Making Course & Med Decision Making Pertinent Labs and Imaging studies reviewed. (See chart for details) Will get labs, and give IV fluids, Zofran, and Bentyl. Labs are unremarkable. Patient feels better after supportive care. Will d/c home. Dragon Disclaimer Dragon Disclaimer This electronic medical record was generated, in whole or in part, using a voice recognition dictation system. Departure Departure Impression: Primary Impression: Acute gastroenteritis Disposition: HOME, SELF-CARE Condition: STABLE Referrals: NABILA QUINTANILLA MD (PCP) Patient Instructions: Viral Gastroenteritis Additional Instructions: Thank you for visiting [facility]. We appreciate you trusting us with your care. If any additional problems come up don't hesitate to return to visit us. Please follow up with your primary care provider so they can plan additional care if needed and know about the problem that you had. If symptoms worsen come back to the Emergency Department. Any concerning symptoms that start such as chest pain, shortness of air, weakness or numbness on one side of the body, running high fevers or any other concerning symptoms return to the ER. Please fill your medications at any pharmacy and follow the prescription instructions. Scripts Dicyclomine Hcl (DICYCLOMINE HCL) 10 Mg Capsule 1 CAP PO PRN Q6HRS PRN for PAIN for 5 Days, #20 CAP 3 Refills PRN Abdominal Cramping Prov: MERARY BRANDON APRN 06/30/19 Benzonatate (TESSALON PERLE) 100 Mg Capsule 100 MG PO TID PRN for COUGH, #21 CAP Prov: MERARY BRANDON APRN 06/30/19 Ondansetron (ONDANSETRON ODT) 4 Mg Tab.rapdis 1 TAB PO PRN Q6-8HRS PRN for NAUSEA, #16 TAB Prov: MERARY BRANDON APRN 06/30/19 MERARY BRANDON APRN Jun 30, 2019 15:47
[2019-06-30 16:13] LABS: BASO # 0.1 x10^3/uL (0.0-0.2); BASO % 1 % (0-3); EOS # 0.2 x10^3/uL (0.0-0.7); EOS % 3 % (0-3); HEMOGLOBIN 12.3 g/dL (12.0-15.5); LYMPH # 1.3 x10^3/uL (1.0-4.8); LYMPH % 21 % (24-48); MEAN CORPUSCULAR HEMOGLOBIN 28 pg (25-35); MEAN CORPUSCULAR HGB CONC 33 g/dL (31-37); MEAN CORPUSCULAR VOLUME 84 fL (79-100); MONO # 0.5 x10^3/uL (0.0-1.1); MONO % 7 % (0-9); NEUT # 4.1 x10^3/uL (1.8-7.7); NEUT % 68 % (31-73); PLATELET COUNT 205 x10^3/uL (140-400); RED CELL DISTRIBUTION WIDTH 13.5 % (11.5-14.5); WHITE BLOOD COUNT 6.1 x10^3/uL (4.0-11.0)
[2019-06-30 16:28] LABS: CALCIUM 8.2 mg/dL (8.5-10.1); CREATININE 0.7 mg/dL (0.6-1.0); GFR 87.5; POTASSIUM 3.7 mmol/L (3.5-5.1)
[2019-06-30 16:37] LABS: ALBUMIN 3.4 g/dL (3.4-5.0); ALBUMIN/GLOBULIN RATIO 0.9 (1.0-1.7); TOTAL BILIRUBIN 0.3 mg/dL (0.2-1.0); TOTAL PROTEIN 7.3 g/dL (6.4-8.2)
[2019-06-30 17:20] LABS: INFLUENZA A PATIENT NEGATIVE (NEGATIVE); INFLUENZA B PATIENT NEGATIVE (NEGATIVE)
[2019-06-30] MEDS ORDERED: BENZ100C PO ×2 (17:46→18:08)
[2019-06-30] MEDS ORDERED: ONDA4TAB12 PO ×2 (17:46→18:08)
[2019-06-30] MEDS ORDERED: DICY10CA3 PO ×2 (17:46→18:08)
[2019-06-30 17:57] VITALS: BP 137/62
== END 2019-06-30 18:11 | disposition home or self-care (01) ==
LOC: ER 14:54
DX: K52.9 Noninfective gastroenteritis and colitis, unspecified (principal); R11.0 Nausea; R19.7 Diarrhea, unspecified; R51 Headache; E11.9 Type 2 diabetes mellitus without complications; K21.9 Gastro-esophageal reflux disease without esophagitis; Z90.89 Acquired absence of other organs; Z90.49 Acquired absence of other specified parts of digestive tract; Z98.890 Other specified postprocedural states; Z88.5 Allergy status to narcotic agent; Z88.1 Allergy status to other antibiotic agents
CPT/HCPCS: 36415; 80053; 83735; 85025; 87804; 96361; 96374; 99285; J2405; J7030

== ENCOUNTER → 2019-09-18 | Outpatient (CLI) | payer OTHER ==
[~2019-09-18] MED LIST changes: +BENZ100C PO; -CETI10TA22 PO; +CETI10TA24 PO; +DICY10CA3 PO; +ONDA4TAB12 PO
[2019-09-18 07:24] LABS: ALBUMIN 3.9 g/dL (3.4-5.0); ALBUMIN/GLOBULIN RATIO 0.9 (1.0-1.7); CALCIUM 9.6 mg/dL (8.5-10.1); CREATININE 0.7 mg/dL (0.6-1.0); GFR 87.5; POTASSIUM 3.7 mmol/L (3.5-5.1); TOTAL BILIRUBIN 0.4 mg/dL (0.2-1.0); TOTAL PROTEIN 8.2 g/dL (6.4-8.2)
[2019-09-19 00:08] LABS: HEMOGLOBIN A1C 7.3 % (4.8-5.6)
== END | disposition home or self-care (01) ==
LOC: LAB 05:03
PROVIDERS: ATTEND Family Medicine
DX: E11.65 Type 2 diabetes mellitus with hyperglycemia (principal); E78.2 Mixed hyperlipidemia
CPT/HCPCS: 36415; 80053; 80061; 83036

== ENCOUNTER → 2021-09-26 | Outpatient (CLI) | payer OTHER ==
[~2021-09-26] MED LIST changes: -CETI10TA24 PO; +CETI10TA74 PO; +IOHEXOL 240 MG/ML 50ML VIAL. PO ONE; +IOHEXOL 300 MG/ML 100ML VIAL. IV ONE; -PHEN37.5 PO; +PHEN37.59 PO
[2021-09-26 13:01] LABS: CREATININE 0.8 mg/dL (0.6-1.0); GFR 74.5
--- NOTE | 2021-09-26 17:39 | RAD ---
EXAM: Abdomen and pelvis CT with intravenous contrast. HISTORY: Right lower quadrant pain. TECHNIQUE: Computed tomographic images of the abdomen and pelvis were obtained following the administ ration of intravenous contrast. Multiplanar reformatting was performed. *One or more of the following individualized dose reduction techniques were utilized for this examina tion: 1. Automated exposure control. 2. Adjustment of the mA and/or kV according to patient size. 3. Use of iterative reconstruction technique. COMPARISON: 03/27/2019. FINDINGS: Evaluation of the lower thorax demonstrates no infiltrate or pleural effusion. There is a p atulous distal esophagus. There is postoperative change involving the gastroesophageal junction. The There is hepatic steatosis. No focal hepatic lesion is seen. The gallbladder is surgically absent. Th ere is a tiny suspected cystic lesion within the pancreatic head measuring 3 mm. The spleen and adren al glands are unremarkable. The kidneys are unremarkable. There is no appendicitis. There is no evidence of bowel obstruction. There is colonic diverticulosis. There is no convincing diverticulitis. There is mild wall thickening involving the colon likely due to relative under distention. There is no significant surrounding inflammatory stranding. The aorta i s normal in caliber. There is no lymphadenopathy. There is no acute or suspicious osseous lesion. The bladder is unremarkable. The uterus is absent. The ovaries are unremarkable. IMPRESSION: 1. Colonic diverticulosis. There is no convincing diverticulitis. 2. Mild circumferential wall thickening involving the entire colon. Despite the absence of surroundin g inflammatory changes, the appearance favors mild acute pancolitis. Correlate for infectious or infl ammatory etiologies. 3. Tiny suspected cyst within the pancreatic head, stable in appearance. 4. Hepatic steatosis. Electronically signed by: Brenda Patino MD (09/26/2021 5:37 PM) [id number]
== END ==
LOC: CT 11:51
PROVIDERS: ATTEND Nurse Practitioner Family
DX: K57.30 Diverticulosis of large intestine without perforation or abscess without bleeding (principal); K76.0 Fatty (change of) liver, not elsewhere classified; K63.89 Other specified diseases of intestine; Z90.49 Acquired absence of other specified parts of digestive tract; Z98.890 Other specified postprocedural states
CPT/HCPCS: 36415; 74177; 82565; 84520; Q9966; Q9967